=== PATIENT | female | born 1980 | race African-American/Black ===

== ENCOUNTER 2017-03-24 08:43 | Emergency (ER) | payer MEDICAID, OTHER ==
[~2017-03-24] VITALS: Ht 175.3 cm; Wt 57.0 kg
[2017-03-24] MEDS ORDERED: KETOROLAC 30MG/ML VIAL IV STA (09:17)
[2017-03-24] MEDS ORDERED: SODIUM CHLORIDE 0.9% 1,000 ML IV ONE (09:17)
[2017-03-24] MEDS ORDERED: FAMOTIDINE 20MG/2ML VIAL IV STA (09:17)
[2017-03-24] MEDS ORDERED: ONDANSETRON HCL 4MG/2ML VIAL IV STA (09:17)
[2017-03-24] MEDS ORDERED: KETOROLAC 30MG/ML VIAL ONE (09:37)
[2017-03-24] MEDS ORDERED: ONDANSETRON HCL 4MG/2ML VIAL ONE (09:37)
[2017-03-24 10:00] LABS: BASOPHILS % 0.8 % (0.0-2.0); EOSINOPHILS % 0.5 % (0.0-5.0); HEMATOCRIT. 38.1 % (36.0-48.0); HEMOGLOBIN. 12.5 g/dL (12.0-16.0); LYMPHOCYTES % 29.3 % (20.0-50.0); MEAN CORPUSCULAR HEMOGLOBIN 29.5 pg (28.0-32.0); MEAN CORPUSCULAR HGB CONC 32.9 g/dL (31.0-37.0); MEAN CORPUSCULAR VOLUME 89.8 fL (81.0-99.0); MEAN PLATELET VOLUME 8.7 fl (7.4-10.4); MONOCYTES % 5.8 % (2.0-8.0); NEUTROPHILS % 63.6 % (40.0-76.0); PLATELET 165 x1000/uL (130-400); RED BLOOD CELL COUNT 4.25 mill/uL (4.2-5.4); RED CELL DISTRIBUTION WIDTH 13.3 % (11.6-14.6); WHITE BLOOD COUNT 5.8 x1000/uL (4.5-11.0)
[2017-03-24 10:06] LABS: CHLORIDE 109 mEq/L (98-107); INDEX HEMOLYSI 1 (1-3); INDEX ICTERIC 1 (1-4); INDEX LIPEMIC 1 (1-3)
[2017-03-24] MEDS ORDERED: MAGNESIUM/ALUMINUM HYDROXIDE/SIMETHICONE 30ML UDC PO STA (10:06)
[2017-03-24] MEDS ORDERED: VISCOUS LIDOCAINE 2% 15 ML UDC PO STA (10:06)
[2017-03-24 10:09] LABS: ALBUMIN 3.4 g/dL (3.4-5.0); ANION GAP 9; CALCIUM 8.4 mg/dL (8.5-10.1); CARBON DIOXIDE 27 mEq/L (21-32); LIPASE 227 IU/L (73-393); UREA NITROGEN BLOOD 9 mg/dL (7-21)
[2017-03-24 10:15] LABS: ALANINE AMINOTRANSFERASE 12 IU/L (13-61); eGFR > 60 mL/min (>60)
[2017-03-24 10:29] LABS: CLARITY URINE CLEAR (CLEAR); COLOR URINE YELLOW (YELLOW); GLUCOSE URINE NEGATIVE (NEGATIVE); KETONES URINE NEGATIVE (NEGATIVE); LEUKOCYTE ESTERASE URINE NEGATIVE (NEGATIVE); NITRITE URINE NEGATIVE (NEGATIVE); OCCULT BLOOD URINE NEGATIVE (NEGATIVE); PROTEIN URINE NEGATIVE (NEGATIVE)
[2017-03-24 10:59] LABS: *AMPHETAMINES SCREEN URINE NEGATIVE (NEGATIVE); *BARBITURATES SCREEN URINE NEGATIVE (NEGATIVE); *BENZODIAZEPINES SCREEN URINE NEGATIVE (NEGATIVE); *COCAINE SCREEN URINE NEGATIVE (NEGATIVE); ECSTASY MDMA SCREEN URINE NEGATIVE (NEGATIVE); METHADONE URINE SCREEN NEGATIVE (NEGATIVE); OPIATES URINE SCREEN NEGATIVE (NEGATIVE); PHENCYCLIDINE URINE SCREEN NEGATIVE (NEGATIVE)
[2017-03-24 11:04] LABS: CANNABINOID URINE SCREEN PRESUMTIVE POSITIVE (NEGATIVE)
[2017-03-24 11:27] VITALS: BP 119/71
== END 2017-03-24 11:43 | disposition home or self-care (01) ==
LOC: ER 09:06
DX: K21.9 Gastro-esophageal reflux disease without esophagitis (principal); R11.2 Nausea with vomiting, unspecified; R10.9 Unspecified abdominal pain
CPT/HCPCS: 36415; 80053; 80305; 81003; 81025; 83690; 85025; 96361; 96374; 96375; 99285; J1885; J2405; J3490; J7030

== ENCOUNTER 2017-09-01 16:05 | Emergency (ER) | payer OTHER ==
[~2017-09-01] VITALS: Ht 175.3 cm; Wt 60.0 kg
[2017-09-01] MEDS ORDERED: METOCLOPRAMIDE HCL 10MG/2ML VIAL IV ONE (17:30)
[2017-09-01] MEDS ORDERED: SODIUM CHLORIDE 0.9% 1,000 ML IV ONE (17:30)
[2017-09-01] MEDS ORDERED: DIPHENHYDRAMINE 50MG/ML VIAL IV ONE (17:30)
[2017-09-01 17:51] LABS: CHLORIDE 107 mEq/L (98-107)
[2017-09-01 17:53] LABS: BASOPHILS % 0.8 % (0.0-2.0); EOSINOPHILS % 0.6 % (0.0-5.0); HEMATOCRIT. 40.4 % (36.0-48.0); HEMOGLOBIN. 13.5 g/dL (12.0-16.0); LYMPHOCYTES % 24.5 % (20.0-50.0); MEAN CORPUSCULAR HEMOGLOBIN 29.5 pg (28.0-32.0); MEAN CORPUSCULAR VOLUME 88.4 fL (81.0-99.0); MONOCYTES % 7.6 % (2.0-8.0); NEUTROPHILS % 66.5 % (40.0-76.0); PLATELET 174 x1000/uL (130-400); RED BLOOD CELL COUNT 4.57 mill/uL (4.2-5.4); RED CELL DISTRIBUTION WIDTH 13.8 % (11.6-14.6)
[2017-09-01 17:54] LABS: CARBON DIOXIDE 23 mEq/L (21-32)
[2017-09-01 17:56] LABS: HCG SCREEN NEGATIVE
[2017-09-01 18:48] LABS: CLARITY URINE TURBID (CLEAR); COLOR URINE YELLOW (YELLOW); GLUCOSE URINE NEGATIVE (NEGATIVE); KETONES URINE NEGATIVE (NEGATIVE); LEUKOCYTE ESTERASE URINE NEGATIVE (NEGATIVE); NITRITE URINE NEGATIVE (NEGATIVE); OCCULT BLOOD URINE NEGATIVE (NEGATIVE); PH URINE 7.5 (4.5-8.0); PROTEIN URINE 1+ (NEGATIVE); SPECIFIC GRAVITY URINE 1.017 (1.005-1.030); UROBILINOGEN URINE 0.2 E.U./dL (0.2-1.0)
[2017-09-01] MEDS ORDERED: DEXAMETHASONE 10 MG/ML VIAL IV ONE (20:15)
[2017-09-01] MEDS ORDERED: VALPROATE SODIUM 500 MG in SODIUM CHLORIDE 0.9% 100 ML IV ONE (20:15)
[2017-09-01 22:13] VITALS: BP 141/97
[2017-09-02 01:21] LABS: GLUCOSE CSF 58 mg/dL (41-75)
== END 2017-09-02 01:00 | disposition left against medical advice (07) ==
LOC: ER 16:58
DX: R51 Headache (principal); R53.1 Weakness; R42 Dizziness and giddiness; H53.149 Visual discomfort, unspecified; F12.90 Cannabis use, unspecified, uncomplicated; R53.83 Other fatigue; Z87.891 Personal history of nicotine dependence; Z91.018 Allergy to other foods
CPT/HCPCS: 36415; 62270; 70450; 71010; 80053; 81001; 82945; 83735; 84157; 84703; 85025; 87070; 87086; 87205; 87252; 89050; 93005; 96361; 96365; 96375; 99285; J1100; J1200; J2765; J3490; J7030; Z7610; J7050

== ENCOUNTER 2018-02-25 09:27 | Emergency (ER) | payer OTHER ==
[~2018-02-25] VITALS: Ht 170.2 cm; Wt 60.0 kg
[2018-02-25] MEDS ORDERED: MORPHINE SULFATE 4 MG/ML CPJ (NOT FOR IM USE) IV STA (10:02)
[2018-02-25] MEDS ORDERED: ASPIRIN 325MG EC TABLET PO ONE (10:15)
[2018-02-25] MEDS ORDERED: KETOROLAC 30MG/ML VIAL IV ONE (10:15)
[2018-02-25] MEDS ORDERED: LORAZEPAM 2MG/ML CPJ IV ONE (10:15)
[2018-02-25 10:24] LABS: BASOPHILS % 0.7 % (0.0-2.0); EOSINOPHILS % 1.3 % (0.0-5.0); HEMOGLOBIN. 13.1 g/dL (12.0-16.0); LYMPHOCYTES % 36.1 % (20.0-50.0); MEAN CORPUSCULAR VOLUME 88.9 fL (81.0-99.0); MEAN PLATELET VOLUME 8.9 fl (7.4-10.4); MONOCYTES % 6.6 % (2.0-8.0); NEUTROPHILS % 55.3 % (40.0-76.0); PLATELET 181 x1000/uL (130-400); RED BLOOD CELL COUNT 4.39 mill/uL (4.2-5.4); RED CELL DISTRIBUTION WIDTH 13.9 % (11.6-14.6)
[2018-02-25 10:35] LABS: CHLORIDE 109 mEq/L (98-107)
[2018-02-25 10:38] LABS: HCG SCREEN NEGATIVE
[2018-02-25 13:54] VITALS: BP 13/84
== END 2018-02-25 13:57 | disposition home or self-care (01) ==
LOC: ER 09:50
DX: M94.0 Chondrocostal junction syndrome [Tietze] (principal); F41.9 Anxiety disorder, unspecified; F12.10 Cannabis abuse, uncomplicated; Z91.018 Allergy to other foods
CPT/HCPCS: 36415; 71045; 80053; 84484; 84703; 85025; 93005; 99285; J1885; J2060; J2270; Z7610

== ENCOUNTER 2018-08-20 09:16 | Emergency (ER) | payer OTHER ==
[~2018-08-20] VITALS: Ht 170.2 cm; Wt 57.0 kg
[2018-08-20] MEDS ORDERED: DIPHENHYDRAMINE 50MG/ML VIAL IV ONE (10:15)
[2018-08-20] MEDS ORDERED: PROCHLORPERAZINE 10MG/2ML VIAL IV ONE (10:15)
[2018-08-20] MEDS ORDERED: TETRACAINE 0.5% OPHTH DROPS 4ML OP ONE (10:30)
[2018-08-20 11:00] LABS: CLARITY URINE CLEAR (CLEAR); COLOR URINE YELLOW (YELLOW); KETONES URINE NEGATIVE (NEGATIVE); LEUKOCYTE ESTERASE URINE TRACE (NEGATIVE); NITRITE URINE NEGATIVE (NEGATIVE); OCCULT BLOOD URINE NEGATIVE (NEGATIVE); PROTEIN URINE NEGATIVE (NEGATIVE); UROBILINOGEN URINE 0.2 E.U./dL (0.2-1.0)
[2018-08-20 11:04] LABS: BASOPHILS % 0.8 % (0.0-2.0); HEMATOCRIT. 41.3 % (36.0-48.0); HEMOGLOBIN. 13.8 g/dL (12.0-16.0); LYMPHOCYTES % 32.5 % (20.0-50.0); MEAN CORPUSCULAR VOLUME 89.8 fL (81.0-99.0); MEAN PLATELET VOLUME 8.8 fl (7.4-10.4); MONOCYTES % 7.5 % (2.0-8.0); NEUTROPHILS % 58.2 % (40.0-76.0); PLATELET 171 x1000/uL (130-400); RED CELL DISTRIBUTION WIDTH 14.2 % (11.6-14.6)
[2018-08-20 11:09] LABS: CHLORIDE 109 mEq/L (98-107)
[2018-08-20 11:11] LABS: INR 1.1; PROTHROMBIN TIME 10.7 sec (9.1-11.1)
[2018-08-20 11:24] LABS: HCG SCREEN NEGATIVE
[2018-08-20 13:04] VITALS: BP 140/84
== END 2018-08-20 14:36 | disposition home or self-care (01) ==
LOC: ER 09:16
DX: R51 Headache (principal); R10.33 Periumbilical pain; R11.0 Nausea
CPT/HCPCS: 36415; 70450; 80053; 81003; 81025; 83690; 84703; 85025; 85610; 85651; 96374; 96375; 99285; J0780; J1200; Z7610